=== PATIENT | male | born 1975 | race Caucasian/White ===

== ENCOUNTER 2017-03-28 14:34 | Emergency (ER) | payer OTHER ==
[2017-03-28 14:42] VITALS: O2SAT 98
--- NOTE | 2017-03-28 14:58 | EDPHY ---
H & P Smoking Status: Never smoked Time Seen by Provider: 03/28/17 14:47 HPI/ROS: CHIEF COMPLAINT: Anxiety HISTORY OF PRESENT ILLNESS: 42-year-old male presents to the emergency department by private vehicle feeling extremely anxious. He states that went swimming today and was beginning to feel "not right." He states that he got out of the pool and came back home to have lunch and tried to lay down to rest and felt extremely anxious. Does not have pain in his chest. He does feel like he is having trouble breathing. States he has had these same symptoms in the past with anxiety attack about 4-5 years ago. He does state that he has been under a great deal of stress lately. He denies substance abuse or alcohol. Denies abdominal pain. Denies vomiting. REVIEW OF SYSTEMS: Constitutional: No fever, no chills. Eyes: No double or blurry vision. ENT: No sore throat. Respiratory: No cough, no shortness of breath. Cardiac: No chest pain. Gastrointestinal: No abdominal pain, vomiting or diarrhea. Genitourinary: No dysuria. Musculoskeletal: No neck or back pain. Skin: No rashes. Neurological: No headache. (Sindi Farr) Past Medical/Surgical History: Dyslipidemia Family medical history: Father had heart attack at age 62 (Sindi Farr M) Social History: and lives in [place] (Sindi Farr) Physical Exam: General Appearance: Alert, no distress. Anxious. 134/83, heart rate 88, 98% on room air. Eyes: Pupils equal and round. Extraocular motions are all intact. ENT: Mouth: Mucous membranes moist. Respiratory: No wheezing, rhonchi, or rales, lungs are clear to auscultation. Cardiovascular: Regular rate and rhythm. Gastrointestinal: Abdomen is soft and nontender, no masses, no rebound or guarding, bowel sounds normal. Neurological: Alert and oriented x 3, cranial nerves II through XII grossly intact Skin: Warm and dry, no rashes. Musculoskeletal: Nontender to palpate along the cervical, thoracic or lumbar spine. Neck is supple. Extremities: Full range of motion and no peripheral edema. Psychiatric: Patient is oriented X 3, there is no agitation. (Sindi Farr M) Constitutional: Initial Vital Signs Temperature (C) 36.4 C 03/28/17 14:35 Heart Rate 88 03/28/17 14:35 Respiratory Rate 18 03/28/17 14:35 Blood Pressure 134/83 H 03/28/17 14:35 O2 Sat (%) 98 03/28/17 14:35 O2 Delivery Mode Room Air Allergies/Adverse Reactions: No Known Allergies Allergy (Unverified 03/28/17 14:39) Home Medications: Medication Instructions Recorded LORazepam [Ativan] 1 mg PO Q6-8PRN PRN #10 tab 03/28/17 Medical Decision Making - Diagnostics Imaging: I viewed and interpreted images myself - Diagnostics EKG Interpretation: 12-lead EKG interpreted by me; official reading is in trace master. My interpretation is sinus rhythm with no acute ischemic changes rate 87 (Main Cheng) ED Course/Re-evaluation: 42-year-old male presents to the emergency department after feeling extremely anxious. The patient has had these symptoms in the past. Laboratory studies were unremarkable. Troponin was negative. EKG was unremarkable. Chest x-ray was normal. Patient received IV normal saline. The patient refused IV Ativan since he was feeling better. He is requesting to be discharged home with prescription for p. o. Ativan. The patient was encouraged to have close follow-up with primary care provider. Also instructed to return to the emergency department if he developed recurring symptoms of anxiety, if he developed pain in his chest or difficulty breathing, or if he felt worse in any way. Was comfortable with this plan. (Sindi Farr) Differential Diagnosis: Including but not limited to anxiety, myocardial infarction, pulmonary embolism , electrolyte abnormality, dehydration, stress (Sindi Farr) - Data Points Laboratory Results: Laboratory Results 03/28/17 15:10 03/28/17 15:10 Medications Given: Discontinued Medications Sodium Chloride (Ns) 1,000 mls @ 0 mls/hr IV ONCE ONE PRN Reason: Wide Open Stop: 03/28/17 15:59 Last Admin: 03/28/17 16:04 Dose: 1,000 mls Lorazepam (Ativan Injection) 1 mg IVP EDNOW ONE Stop: 03/28/17 15:59 Last Admin: 03/28/17 16:25 Dose: Not Given Departure - Departure Disposition: Home, Routine, Self-Care Clinical Impression: Anxiety Condition: Good Instructions: Anxiety (ED) Additional Instructions: Follow-up with primary care provider to recheck. Return to the emergency department if you develop any recurring feelings of panic or anxiety. You may use Ativan as needed for symptoms of anxiety. Caution this medication will make you drowsy. Referrals: Chiara Cartwright DO [Doctor of Osteopathy] - 2-3 days, call for appt. (Primary care provider manager action) Prescriptions: LORazepam [Ativan] 1 mg PO Q6-8PRN PRN #10 tab PRN Reason: Anxiety
--- NOTE | 2017-03-28 15:01 | CPEKG ---
Heart Rate: 87 RR Interval: 690 P-R Interval: 152 QRSD Interval: 110 QT Interval: 372 QTC Interval: 448 P [place]: 66 QRS [place]: 96 T Wave [place]: 38 EKG Severity - ABNORMAL ECG - EKG Impression: SINUS RHYTHM EKG Impression: NONSPECIFIC INTRAVENTRICULAR CONDUCTION DELAY Electronically Signed By: Main Cheng 28-Mar-2017 15:24:09
[2017-03-28 15:21] LABS: % IMMATURE GRANULYOCYTES 0.5 % (0.0-1.1); ABSOLUTE IMMATURE GRANULOCYTES 0.06 10^3/uL (0.00-0.10); ADD DIFF? NO; ADD MORPH? NO; ADD SCAN? NO; ATYPICAL LYMPHOCYTE FLAG 0 (0-99); FRAGMENT RBC FLAG 0 (0-99); HEMATOCRIT 44.1 % (40.0-51.0); HEMOGLOBIN 15.3 g/dL (13.7-17.5); LEFT SHIFT FLG 0 (0-99); LIPEMIA HEMOLYSIS FLAG 90 (0-99); MEAN CELL HEMOGLOBIN CONCENTR. 34.7 g/dL (32.4-36.7); MEAN CELL VOLUME 86.5 fL (81.5-99.8); MEAN PLATELET VOLUME 9.9 fL (8.7-11.7); PLATELET CLUMPS FLAG 0 (0-99); PLATELET COUNT 277 10^3/uL (150-400); RED CELL DISTRIBUTION WIDTH 12.4 % (11.5-15.2)
[2017-03-28 15:31] LABS: ANION GAP 12 mEq/L (8-16); CARBON DIOXIDE 20 mEq/l (22-31); CHLORIDE 104 mEq/L (97-110); CREATININE 1.1 mg/dL (0.7-1.3); GLOMERULAR FILTRATION RATE > 60; GLUCOSE 103 mg/dL (70-100); POTASSIUM 4.1 mEq/L (3.5-5.2); SODIUM 136 mEq/L (134-144)
[2017-03-28 15:43] LABS: TROPONIN I < 0.012 ng/mL (0-0.034)
[2017-03-28] MEDS ORDERED: NS 1,000 ML IV ONE (15:58)
[2017-03-28] MEDS ORDERED: LORazepam 2 MG/ML INJ IVP ONE (15:58)
[2017-03-28 16:35] VITALS: BP 132/82; PULSE 75; RESP 20; TEMP 97.2
== END 2017-03-28 16:35 | disposition home or self-care (01) ==
DX: F41.9 Anxiety disorder, unspecified (principal)
CPT/HCPCS: J2060